=== PATIENT | female | born 1970 | race Caucasian/White ===

== ENCOUNTER 2024-01-15 21:51 | Emergency (ER) | payer OTHER ==
[~2024-01-15] VITALS: Ht 162.6 cm; Wt 61.0 kg
[2024-01-15 21:58] VITALS: TEMP 98.4; O2SAT 100
[2024-01-15] MEDS: KETOROLAC 60MG/2ML VIAL IM ONE (23:15)
[2024-01-16] MEDS ORDERED: NAPR220C61 MT (01:23)
[2024-01-16 02:43] VITALS: BP 137/68; PULSE 88; RESP 12
== END 2024-01-16 02:44 | disposition home or self-care (01) ==
LOC: ER 21:51
DX: S89.91XA Unspecified injury of right lower leg, initial encounter (principal); G89.11 Acute pain due to trauma; E11.9 Type 2 diabetes mellitus without complications; E78.00 Pure hypercholesterolemia, unspecified; I10 Essential (primary) hypertension; W18.39XA Other fall on same level, initial encounter; Y93.89 Activity, other specified; Y92.89 Other specified places as the place of occurrence of the external cause; Y99.8 Other external cause status
CPT/HCPCS: 99284; 73562; 73590; 96372; J1885

== ENCOUNTER 2024-01-20 18:19 | Emergency (ER) | payer OTHER ==
[~2024-01-20] VITALS: Ht 160 cm; Wt 55.0 kg
[~2024-01-20 18:19] MED LIST: NAPR220C61 MT
[2024-01-20 18:24] VITALS: O2SAT 98
[2024-01-20] MEDS: MORPHINE SULFATE 4 MG/ML INJ (FOR IV/IM USE) IM ONE (19:04)
[2024-01-20] MEDS ORDERED: T3 PO (19:49)
[2024-01-20 20:36] VITALS: BP 108/57; PULSE 82; RESP 11; TEMP 97.1
== END 2024-01-20 20:37 | disposition home or self-care (01) ==
LOC: ER 18:19
DX: S82.001A Unspecified fracture of right patella, initial encounter for closed fracture (principal); E11.9 Type 2 diabetes mellitus without complications; E78.00 Pure hypercholesterolemia, unspecified; I10 Essential (primary) hypertension; X58.XXXA Exposure to other specified factors, initial encounter; Y93.89 Activity, other specified; Y92.89 Other specified places as the place of occurrence of the external cause; Y99.8 Other external cause status
CPT/HCPCS: 99284; 73552; 72170; 96372; J2270